=== PATIENT | female | born 1970 | race Hispanic/Latino ===

== ENCOUNTER 2018-01-04 12:39 | Outpatient (CLI) | payer BC | END 2018-01-04 12:40 | disposition home or self-care (01) | LOC: BICMAMMO 12:39 | PROVIDERS: ATTEND Physician Assistant | DX: Z12.31 Encounter for screening mammogram for malignant neoplasm of breast (principal); N63.20 Unspecified lump in the left breast, unspecified quadrant | CPT/HCPCS: 77063; 77067 ==

== ENCOUNTER 2018-01-09 12:46 | Outpatient (CLI) | payer BC | END 2018-01-09 12:47 | disposition home or self-care (01) | LOC: BICMAMMO 12:46 | PROVIDERS: ATTEND Physician Assistant | DX: N63.20 Unspecified lump in the left breast, unspecified quadrant (principal) ==

== ENCOUNTER 2018-07-16 10:52 | Outpatient (CLI) | payer BC ==
--- NOTE | 2018-07-16 12:17 | ULT ---
LEFT BREAST ULTRASOUND: Date: 07/16/18 COMPARISON: 01/09/18. HISTORY: Septated cyst seen on prior ultrasound of the left breast at the 7 o'clock position. TECHNIQUE: Multiplanar Gonzales scale and color Doppler images were obtained in a left breast ultrasound. FINDINGS: There is a stable anechoic cyst with a single septation at the 7 o'clock position of the left breast. This measures 7.0 mm in greatest dimension and is stable compared to the prior examination. No suspi cious shadowing or suspicious mass is seen. IMPRESSION: BIRADS Category 2 - Benign findings. Annual screening mammography is recommended. POS: MAURISIO
== END 2018-07-16 10:53 | disposition home or self-care (01) ==
LOC: BICULT 10:52
PROVIDERS: ATTEND Physician Assistant
DX: R92.8 Other abnormal and inconclusive findings on diagnostic imaging of breast (principal)

== ENCOUNTER 2019-12-04 06:50 | Outpatient (CLI) | payer BC, OTHER ==
[2019-12-04 14:19] LABS: #Basophils 0.1 thou/uL (0.0-0.2); #Lymphocytes 2.3 thou/uL (1.20-3.40); #Monocytes 0.3 thou/uL (0.11-0.59); #Neutrophils 2.8 thou/uL (1.40-6.50); %Basophils 1.2 % (0.0-1.0); %Eosinophils 0.7 % (0.0-10.0); %Lymphocytes 41.5 % (21.0-51.0); %Monocytes 5.8 % (0.0-10.0); %Neutrophils 50.7 % (42.0-75.0); Hemoglobin 14.4 g/dL (12.0-16.0); Mean Corpuscular HGB CONC 34.1 g/dL (32.0-36.0); Mean Corpuscular Hemoglobin 29.9 pg (27.0-31.0); Mean Corpuscular Volume 87.8 fL (78.0-98.0); Mean Platelet Volume 8.1 fL (7.4-10.4); Platelet Count 216 thou/uL (130-400); RBC Distribution Width 11.5 % (11.5-14.5); Red Blood Cell (RBC) Count 4.81 mill/uL (4.20-5.40); White Blood Cell (WBC) Count 5.5 thou/uL (4.8-10.8)
[2019-12-05 12:09] LABS: SARS-CoV-2 MS2 Positive; SARS-CoV-2 N Gene Negative; SARS-CoV-2 S Gene Negative; SARS-CoV-2 orf1ab Negative
== END 2019-12-04 06:51 | disposition home or self-care (01) ==
LOC: LABBT 06:50
PROVIDERS: ATTEND Orthopaedic Surgery Hand Surgery
DX: Z01.812 Encounter for preprocedural laboratory examination (principal); Z11.59 Encounter for screening for other viral diseases; M65.4 Radial styloid tenosynovitis [de Quervain]
CPT/HCPCS: 85025; 87635; U0003

== ENCOUNTER 2019-12-06 05:56 | Day surgery (SDC) | payer BC ==
[2019-12-03 10:09] VITALS: BMI 32.2
[2019-12-06] MEDS ORDERED: Vancomycin 1 GM/200 ML BAG ONE (07:39)
[2019-12-06] MEDS ORDERED: Scopolamine 1.5 mg/72 hour Patch ONE (07:39)
[2019-12-06] MEDS ORDERED: Fentanyl 100 MCG/2 ML VIAL ONE (08:44)
[2019-12-06] MEDS ORDERED: Midazolam HCl 2 mg/2 ml Vial ONE (08:44)
[2019-12-06] MEDS ORDERED: Bacitracin Zinc Ointment 30 gm TUBE ONE (08:50)
[2019-12-06] MEDS ORDERED: Sodium Chloride 0.9% 10 ML ONE (08:50)
[2019-12-06] MEDS ORDERED: Bupivacaine PF 0.5% 30 ML VIAL ONE (08:50)
[2019-12-06] MEDS ORDERED: Betamet Acet/Betamet Na Ph 30 MG/5 ML VIAL ONE (08:50)
[2019-12-06] MEDS ORDERED: Ketorolac Tromethamine 30 MG/ML VIAL ONE ×2 (10:27→10:31)
[2019-12-06] MEDS ORDERED: Promethazine HCl 25 MG/ML VIAL ONE (10:27)
[2019-12-06] MEDS ORDERED: Lidocaine 1% PF 5 ML VIAL ONE (10:31)
[2019-12-06] MEDS ORDERED: Ondansetron ORAL SOLN. 4 MG/5 ML UDCUP ONE (10:31)
[2019-12-06] MEDS ORDERED: Dexamethasone 20 MG/5 ML VIAL ONE (10:31)
[2019-12-06] MEDS ORDERED: PROPOFOL 200 MG/20 ML VIAL ONE (10:31)
[2019-12-06] MEDS ORDERED: EPHEDRINE 25 MG/5 ML SYRINGE ONE (10:31)
--- NOTE | 2019-12-06 10:49 | OP ---
DATE OF PROCEDURE: 12/06/2019 PREOPERATIVE DIAGNOSIS: Left first dorsal tenosynovitis/de Quervain's. POSTOPERATIVE DIAGNOSIS: Left first dorsal tenosynovitis/de Quervain's. FINDINGS: 1. Three sleeves of abductor pollicis longus. 2. Separate compartment of extensor pollicis brevis and abductor pollicis longus. PROCEDURE PERFORMED: First dorsal compartment release, left wrist. TOURNIQUET TIME: 9 minutes. ESTIMATED BLOOD LOSS: Less than or equal to 5 mL. INJECTABLE: Yes, 10 mL of 0.5% Marcaine before the incision, 10 afterwards, and 5 mL Celestone drip technique into the tendon sheath mass. DESCRIPTION OF PROCEDURE: After successful general LMA technique, the limb was prepped and draped. Before prepping and draping, we gave the initial 10 mL Marcaine along the first dorsal compartment without epinephrine and then gave final 10 after the wound was closed. We exsanguinated the limb. The tourniquet was inflated to 250 mmHg pressure. We made a zigzag incision through skin and subcutaneous tissue. Using dissection, we identified the ulnar branch and superficial radial nerve and dissected them gently away from the center of the field. Placed a small self-retaining retractor and localized the tendon sheath. Tendon sheath over the first dorsum was very thick, and then as we entered it, we saw multiple sleeves of the abductor pollicis longus, but no true tenosynovitis. There was a separate compartment for the extensor pollicis brevis, which was released as well with a [place] blade. We trimmed 1 mm of the extensor phillips on both sides, leaving a large volar flap to prevent subluxation. We released the tourniquet. We placed Celestone and obtained hemostasis. Closed the incision with interrupted 4-0 nylon in a mattress pattern and gave the final 10 mL Marcaine injection. Bulky dressing was applied. The patient left the operating room without evidence of anesthetic or operative complication. Job ID: [id number]
== END 2019-12-06 12:14 | disposition home or self-care (01) ==
LOC: SDC 05:56
PROVIDERS: ATTEND Orthopaedic Surgery Hand Surgery
PROC: 0LN60ZZ Release Left Lower Arm and Wrist Tendon, Open Approach (ICD-10-PCS; principal; 2019-12-06)
DX: M65.4 Radial styloid tenosynovitis [de Quervain] (principal); E03.9 Hypothyroidism, unspecified; Z88.0 Allergy status to penicillin
CPT/HCPCS: J0702; J1100; J1885; J2001; J2250; J2550; J2704; J3010; J3370; J3490; Q0162; S0020

== ENCOUNTER 2021-04-23 10:35 | Outpatient (CLI) | payer BC | END 2021-04-23 10:36 | disposition home or self-care (01) | LOC: BICRAD 10:35 | PROVIDERS: ATTEND Nurse Practitioner Family | DX: S41.152A Open bite of left upper arm, initial encounter (principal) ==

== ENCOUNTER 2023-02-09 08:14 | Outpatient (CLI) | payer BC | END 2023-02-09 08:15 | disposition home or self-care (01) | LOC: BICMAMMO 08:14 | PROVIDERS: ATTEND Physician Assistant | DX: Z12.31 Encounter for screening mammogram for malignant neoplasm of breast (principal); N63.10 Unspecified lump in the right breast, unspecified quadrant; N64.89 Other specified disorders of breast; Z80.3 Family history of malignant neoplasm of breast; Z98.82 Breast implant status | CPT/HCPCS: 77063; 77067 ==

== ENCOUNTER 2023-02-16 13:48 | Outpatient (CLI) | payer BC | END 2023-02-16 13:49 | disposition home or self-care (01) | LOC: BICMAMMO 13:48 | PROVIDERS: ATTEND Physician Assistant | DX: N63.11 Unspecified lump in the right breast, upper outer quadrant (principal); N63.14 Unspecified lump in the right breast, lower inner quadrant; N64.89 Other specified disorders of breast | CPT/HCPCS: G0279 ==

== ENCOUNTER 2023-11-21 08:02 | Outpatient (CLI) | payer BC | END 2023-11-21 08:03 | disposition home or self-care (01) | LOC: BICMAMMO 08:02 | PROVIDERS: ATTEND Nurse Practitioner Family | DX: R92.8 Other abnormal and inconclusive findings on diagnostic imaging of breast (principal); N63.15 Unspecified lump in the right breast, overlapping quadrants; N63.14 Unspecified lump in the right breast, lower inner quadrant; N64.89 Other specified disorders of breast | CPT/HCPCS: 77066; G0279 ==

== ENCOUNTER 2024-05-13 08:33 | Outpatient (CLI) | payer BC ==
[2024-05-13 09:42] LABS: #Basophils 0.03 10x3/uL (0.0-0.2); %Basophils 0.6 % (0.0-1.0); %Eosinophils 1.6 % (0.0-10.0); %Lymphocytes 39.5 % (21.0-51.0); %Monocytes 5.7 % (0.0-10.0); %Neutrophils 52.4 % (42.0-75.0); Hematocrit 45.2 % (36.0-47.0); Hemoglobin 15.2 g/dL (12.0-16.0); Mean Corpuscular HGB CONC 33.6 g/dL (32.0-36.0); Mean Corpuscular Hemoglobin 29.5 pg (27.0-31.0); Mean Corpuscular Volume 87.6 fL (78.0-98.0); Mean Platelet Volume 9.9 fL (7.4-10.4); Platelet Count 258 10x3/uL (130-400); RBC Distribution Width 12.5 % (11.5-14.5); Red Blood Cell (RBC) Count 5.16 mill/uL (4.20-5.40)
[2024-05-13 10:00] LABS: Anion Gap 12 mmol/L (10-20); BUN (Urea Nitrogen) 14 mg/dL (9.8-20.1); Calc. Creatinine Clearance 0 mL/min (70-130); Calcium 9.7 mg/dL (7.8-10.44); Carbon Dioxide 27 mmol/L (22-29); Chloride 104 mmol/L (98-107); Estimated GFR 88; Glucose 106 mg/dL (70-105); Potassium 4.2 mmol/L (3.5-5.1); Sodium 139 mmol/L (136-145)
== END 2024-05-13 08:34 | disposition home or self-care (01) ==
LOC: LABBT 08:33
PROVIDERS: ATTEND Orthopaedic Surgery
DX: Z01.818 Encounter for other preprocedural examination (principal); M20.012 Mallet finger of left finger(s)
CPT/HCPCS: 80048; 85025; 93005; 93010

== ENCOUNTER 2024-05-16 08:34 | Day surgery (SDC) | payer BC ==
[2024-05-13 08:55] VITALS: BMI 30.7
[2024-05-16] MEDS ORDERED: Bupivacaine PF 0.5% 30 ML VIAL ONE (10:06)
[2024-05-16] MEDS ORDERED: CEFAZOLIN 2 GM VIAL ONE (10:32)
[2024-05-16] MEDS ORDERED: PROPOFOL 20 ML ONE (10:33)
[2024-05-16] MEDS ORDERED: Ondansetron PF 4 MG/2 ML Vial ONE ×2 (10:33→11:31)
[2024-05-16] MEDS ORDERED: Scopolamine 1 mg/72 hour Patch ONE (10:33)
[2024-05-16] MEDS ORDERED: fentaNYL 50 mcg/mL 1 mL Vial ONE (10:33)
[2024-05-16] MEDS ORDERED: Ketorolac Tromethamine 30 MG (1 mL) VIAL ONE (10:33)
[2024-05-16] MEDS ORDERED: Lidocaine 1% PF 5 ML VIAL ONE (10:33)
[2024-05-16] MEDS ORDERED: Bacitracin Zinc Ointment 30 gm TUBE ONE (11:05)
[2024-05-16] MEDS ORDERED: Dexamethasone 4 mg/ml Vial ONE (11:30)
[2024-05-16] MEDS ORDERED: Promethazine HCl 25 MG/ML VIAL ONE (11:54)
== END 2024-05-16 12:29 | disposition home or self-care (01) ==
LOC: SDC 08:34
PROVIDERS: ATTEND Orthopaedic Surgery
PROC: 0PHV34Z Insertion of Internal Fixation Device into Left Finger Phalanx, Percutaneous Approach (ICD-10-PCS; principal; 2024-05-16)
PROC: 0LQ80ZZ Repair Left Hand Tendon, Open Approach (ICD-10-PCS; principal; 2024-05-16)
DX: M20.012 Mallet finger of left finger(s) (principal); Z88.0 Allergy status to penicillin; E03.9 Hypothyroidism, unspecified; Z90.710 Acquired absence of both cervix and uterus; Z98.890 Other specified postprocedural states; Z79.899 Other long term (current) drug therapy
CPT/HCPCS: A6223; C1713; J0665; J1100; J1885; J2405; J2550; J2704; J3010